=== PATIENT | female | born 1945 | race Caucasian/White ===

== ENCOUNTER 2016-11-06 08:33 | Day surgery (SDC) | payer MEDICARE, OTHER ==
--- NOTE | ~2016-11-06 | OP ---
Record Of Operation [facility] [address] [place]. [address] NAME: MITCH WERNER : 43 [place] [facility] [place] [id number] AGE: 71 ADM/REG DATE : 11/06/16 MR#: [id number] REPORT SERV DATE: 11/06/16 DICTATED BY: SUNNY ALEXANDER DATE: 11/06/16 REPORT STATUS : Draft TRANSCRIBED BY: MARIA ESTHER DATE: 11/06/16 DATE OF PROCEDURE: PROCEDURE PERFORMED: Fiberoptic bronchoscopy, bronchoscopy with endobronchial ultrasound, bronchoscopy with electromagnetic navigation and superDimension, transbronchial brushes and transbronchial lung biopsies, and bronchoalveolar lavage. INDICATIONS: PET positive left lower lobe lesion. POSTOPERATIVE DIAGNOSIS: Chronic bronchitis and PET positive left lower lobe lesion. DESCRIPTION OF PROCEDURE: After risks and benefits were explained, informed consent was obtained. The patient received anesthesia under care of Anesthesiology with placement of an oral endotracheal tube. The bronchoscope was advanced via the endotracheal tube, and the entire bronchial tree was inspected. She had some changes of chronic bronchitis throughout with no endobronchial lesions. Following airway inspection, we used electromagnetic navigation system: We did acquisition of surveillance points and then navigated to within 0.5 cm to 1 cm from the lesion on three separate routes. Transbronchial biopsies were obtained in the area with transbronchial needle aspirate and brushing. Those were seen in touch prep and showed giant cells and inflammatory changes, not similar to a prior biopsy in the area that was done, a CT-guided biopsy. We then performed a bronchoalveolar lavage in the posterior and lateral segments of the left lower lobe. We then switched to the endobronchial ultrasound scope and did endobronchial ultrasound surveillance. We could not identify a level 7, 10L, or 11L lymph nodes that were amenable to biopsy because there was no soft tissue seen beyond the bronchial wall. Following the bronchial surveillance, bronchoscope was withdrawn, and there were no immediate complications. Postoperative chest radiograph is spending, but on fluoroscopy, there was no evidence of a pneumothorax. DAVE/MARIA ESTHER Sunny Alexander M.D. / [id number] CC: Sunny Alexander M.D.
[~2016-11-06 08:33] MED LIST: ACET500CAP PO; ADVIL PO; ASAB PO; CLARIT10 PO; DIABET2.5 PO; ESTRACE1 MG PO; FISH-EPA1000 MG PO; GLUCOTROL5 PO; NEXIUM40 PO; PRAVACHOL80 MG PO; PROTONIX PO; REFRES1; SUCR PO; TEARS NATURA OP; TYLENOL SIN1 PO
[2016-11-06 09:09] LABS: HEMATOCRIT 41.9 % (36.0-48.0); HEMOGLOBIN 14.3 g/dL (12.0-16.0)
[2016-11-06 09:22] LABS: CALCIUM, SERUM 9.2 MG/DL (8.5-10.4); CHLORIDE, SERUM 111 MMOL/L (96-112); CREATININE 0.95 MG/DL (0.55-1.02); GFR AFRICAN AMERICAN 69 ML/MIN (>=60); GFR NON AFRICAN AMERICAN 60 ML/MIN (>=60); GLUCOSE, SERUM 160 MG/DL (60-99); POTASSIUM, SERUM 4.3 MMOL/L (3.5-5.3); SODIUM, SERUM 144 MMOL/L (135-148)
[2016-11-06 09:27] LABS: BUN (BLOOD UREA NITROGEN) 13 MG/DL (6-23); CO2 (CARBON DIOXIDE) 28 MMOL/L (24-34)
[2016-11-06 17:24] LABS: BD FL LYMPH (NOT ORD) 11 %; BF BASO (NOT OF) 0 %; BF LARGE MONONUCLEAR 71 %; BF TOTAL CELL CT (NOT ORD 178 /MM3; BODY FLUID EOS (NOT ORD) 0 %; BODY FLUID SEG (NOT ORD) 18 %
[2016-11-06 17:25] LABS: BD FL SOURCE (NOT ORD) BAL; BODY FLUID RBC (NOT ORD) 27000 /MM3
[2016-11-27] MEDS ORDERED: V5 PO (13:12)
[2016-12-01] MEDS ORDERED: PCET PO (09:24)
[2016-12-01] MEDS ORDERED: ZOFRAN4 PO (09:26)
== END 2016-11-06 14:09 | disposition home or self-care (01) ==
LOC: DMU 08:33
PROVIDERS: Anesthesiology; Internal Medicine Pulmonary Disease
PROC: 0B9B8ZX Drainage of Left Lower Lobe Bronchus, Via Natural or Artificial Opening Endoscopic, Diagnostic (ICD-10-PCS; principal; 2016-11-06 10:00)
PROC: 0B9B8ZX Drainage of Left Lower Lobe Bronchus, Via Natural or Artificial Opening Endoscopic, Diagnostic (ICD-10-PCS; 2016-11-06 10:00)
PROC: 0B9J8ZX Drainage of Left Lower Lung Lobe, Via Natural or Artificial Opening Endoscopic, Diagnostic (ICD-10-PCS; 2016-11-06 10:00)
PROC: 0BBJ8ZX Excision of Left Lower Lung Lobe, Via Natural or Artificial Opening Endoscopic, Diagnostic (ICD-10-PCS; 2016-11-06 10:00)
DX: J42 Unspecified chronic bronchitis (principal); E78.5 Hyperlipidemia, unspecified; E11.9 Type 2 diabetes mellitus without complications; J44.9 Chronic obstructive pulmonary disease, unspecified; J30.9 Allergic rhinitis, unspecified; R91.1 Solitary pulmonary nodule; J01.00 Acute maxillary sinusitis, unspecified; J98.2 Interstitial emphysema; F32.9 Major depressive disorder, single episode, unspecified; K21.9 Gastro-esophageal reflux disease without esophagitis; F41.9 Anxiety disorder, unspecified; M19.90 Unspecified osteoarthritis, unspecified site; E78.00 Pure hypercholesterolemia, unspecified; Z90.49 Acquired absence of other specified parts of digestive tract; Z90.710 Acquired absence of both cervix and uterus; Z86.73 Personal history of transient ischemic attack (TIA), and cerebral infarction without residual deficits; Z79.899 Other long term (current) drug therapy; F17.210 Nicotine dependence, cigarettes, uncomplicated
CPT/HCPCS: 80048; 82962; 85014; 85018; 87015; 87070; 87102; 87116; 87205; 88112; 88305; 88333; 89051; 93005; 94640; A9270-GY; C1769; J2405; J2710; J3010